=== PATIENT | male | born 1960 | race Caucasian/White ===

== ENCOUNTER → 2020-09-22 | Outpatient (REF) | payer BC | LOC: M LAB REF 18:53 | PROVIDERS: ATTEND Physician Assistant | DX: B07.9 Viral wart, unspecified (principal) ==

== ENCOUNTER 2022-01-11 08:59 | Day surgery (SDC) | payer BC ==
[~2022-01-11] VITALS: Ht 177.8 cm; Wt 84.5 kg
[~2022-01-11 08:59] MED LIST: OMEP-173 PO; VARE1TAB2 PO; ceFAZolin SOD 2 GM in IV 1 EA IV ONE
[2022-01-11] MEDS ORDERED: INSULIN LISPRO (NovoLOG) PER UNIT SC PRN ×2 (09:55→11:35)
[2022-01-11] MEDS ORDERED: LR 1,000 ML IV SCH ×2 (09:55→11:35)
[2022-01-11] MEDS ORDERED: BUPIVACAINE HCL 0.25% 30ML VIAL As Ordered ONE (10:40)
[2022-01-11] MEDS ORDERED: BACITRACIN OINTMENT 30GM TUBE As Ordered ONE (10:40)
[2022-01-11] MEDS ORDERED: KETOROLAC 60MG 2ML VIAL As Ordered ONE (10:52)
[2022-01-11] MEDS ORDERED: MIDAZOLAM INJ 2MG/2ML VIAL (J2250 PER 1MG) As Ordered ONE (10:52)
[2022-01-11] MEDS ORDERED: fentaNYL 100 MCG/2 ML INJECTION As Ordered ONE (10:52)
[2022-01-11] MEDS ORDERED: LIDOCAINE 2% 100MG/5ML SDV (FOR ANES.) As Ordered ONE (10:52)
[2022-01-11] MEDS ORDERED: dexameTHASONE 4 MG/ML 1ML VIAL (J1100 PER 1MG) As Ordered ONE (10:52)
[2022-01-11] MEDS ORDERED: propofoL 200 MG/20 ML VIAL As Ordered ONE ×2 (10:52→11:08)
[2022-01-11] MEDS ORDERED: METOCLOPRAMIDE INJ 10MG/2ML VIAL (J2765 PER 1) As Ordered ONE (10:52)
[2022-01-11] MEDS ORDERED: ONDANSETRON 4MG 2ML VIAL As Ordered ONE (10:52)
[2022-01-11] MEDS ORDERED: ACETAMINOPHEN 1000MG 100ML IV BTL (OFIRMEV) (J0131 PER 10MG) As Ordered ONE (10:55)
[2022-01-11] MEDS ORDERED: oxyCODONE 5MG TAB PO PRN (11:35)
[2022-01-11] MEDS ORDERED: fentaNYL 100 MCG/2 ML INJECTION IV PRN (11:35)
[2022-01-11] MEDS ORDERED: ONDANSETRON 4MG 2ML VIAL IV PRN (11:35)
[2022-01-11] MEDS ORDERED: ePHEDrine SULFATE 25 MG/5 ML(5MG/ML) SYRINGE As Ordered ONE (11:35)
[2022-01-11] MEDS ORDERED: HYDROMORPHONE HCL 0.5 MG/ 0.5 ML SYRINGE (J1170 PER 1) IV PRN (11:35)
[2022-01-11] MEDS ORDERED: TRAM50TA2 PO (12:02)
[2022-01-11 13:01] VITALS: BP 143/79
== END 2022-01-11 13:50 | disposition home or self-care (01) ==
LOC: M SDC 08:59
PROVIDERS: ATTEND Orthopaedic Surgery Hand Surgery
DX: L85.8 Other specified epidermal thickening (principal); K21.9 Gastro-esophageal reflux disease without esophagitis; Z79.899 Other long term (current) drug therapy; F17.210 Nicotine dependence, cigarettes, uncomplicated
CPT/HCPCS: 11424; 87070; 87075; 87205; 88307; J0131; J0690; J1100; J1885; J2250; J2405; J2765; J3010